=== PATIENT | male | born 1950 | race Caucasian/White ===

== ENCOUNTER 2025-02-03 14:58 | Emergency (ER) | payer BC, MEDICARE, OTHER ==
[2025-02-03 15:16] LABS: BASOPHILS ABSOLUTE AUTO 0.01 K/uL (0.00-0.20); BASOPHILS PERCENT AUTO 0.1 % (0.0-2.0); EOSINOPHILS ABSOLUTE AUTO 0.11 K/uL (0.00-0.50); EOSINOPHILS PERCENT AUTO 1.0 % (0.0-5.0); IMMATURE GRAN ABSOLUTE AUTO 0.03 10^3/uL (0.00-0.04); IMMATURE GRAN PERCENT AUTO 0.3 % (0.0-0.4); LYMPHOCYTES ABSOLUTE AUTO 1.79 K/uL (0.50-3.50); LYMPHOCYTES PERCENT AUTO 16.9 % (10.0-50.0); MONOCYTES ABSOLUTE AUTO 0.96 K/uL (0.00-1.00); MONOCYTES PERCENT AUTO 9.0 % (2.0-14.0); NEUTROPHILS ABSOLUTE AUTO 7.72 K/uL (1.40-7.00); NEUTROPHILS PERCENT AUTO 72.7 % (45.0-80.0); PLATELET COUNT,PLT 197 K/uL (150-350); RED BLOOD CELL COUNT 4.67 M/uL (4.33-5.41); RED CELL DISTRIBUTION WIDTH 12.7 % (11.2-14.1); WHITE BLOOD CELL COUNT,WBC 10.6 K/uL (4.0-10.2)
[2025-02-03 15:28] LABS: ALANINE AMINOTRANSFERASE,ALT 85.0 U/L (12-78); ASPARTATE AMNIOTRANSFERASE,AST 50.0 U/L (15-37); BILIRUBIN TOTAL 0.7 mg/dL (0.2-1.0); BLOOD UREA NITROGEN,BUN 29.0 mg/dL (7-18); CARBON DIOXIDE,CO2 21.8 mmol/L (21.0-32.0); CHLORIDE,CL 108.0 mmol/L (98-107); CREATININE 1.88 mg/dL (0.51-1.17); EST CRCL DRUG DOSING (CG) 34.36 mL/min; GLUCOSE RANDOM 124.0 mg/dL (70-99); POTASSIUM,K 3.6 mmol/L (3.5-5.1); PROTEIN TOTAL,TP 7.2 g/dL (6.4-8.2); SODIUM,NA 143.0 mmol/L (136-145)
[2025-02-03 15:29] LABS: ESTIMATED GFR 37.0 mL/min (>=60)
== END 2025-02-03 18:20 | disposition home or self-care (01) ==
LOC: LL.ED 14:58
DX: S20.219A Contusion of unspecified front wall of thorax, initial encounter (principal); M20.011 Mallet finger of right finger(s); R94.5 Abnormal results of liver function studies; I25.10 Atherosclerotic heart disease of native coronary artery without angina pectoris; I10 Essential (primary) hypertension; K21.9 Gastro-esophageal reflux disease without esophagitis; E78.00 Pure hypercholesterolemia, unspecified; E03.9 Hypothyroidism, unspecified; E66.9 Obesity, unspecified; Z68.28 Body mass index [BMI] 28.0-28.9, adult; Z88.5 Allergy status to narcotic agent; Z88.8 Allergy status to other drugs, medicaments and biological substances; Z79.82 Long term (current) use of aspirin; Z79.890 Hormone replacement therapy; Z79.899 Other long term (current) drug therapy; V80.010A Animal-rider injured by fall from or being thrown from horse in noncollision accident, initial encounter
CPT/HCPCS: 36415; 71250; 72170; 73140-F9; 74018; 80053; 85025; 93005; 93010; 96360; 99284; 99284-25; J7040